=== PATIENT | female | born 1945 | race Caucasian/White ===

== ENCOUNTER → 2016-09-25 | Outpatient (CLI) | payer OTHER, MEDICARE ==
--- NOTE | 2016-09-25 14:24 | MA ---
Screening Digital Mammogram Clinical Indications: Routine screening. Personal history of non-Hodgkin's lymphoma. Technique: Standard cephalocaudal and mediolateral oblique projections are obtained. This examinati on is processed by the [employer] computer aided detection system. Comparison: October 2014, July 2013 and August 2011 Breast density: B; There are scattered fibroglandular densities. Findings: CAD was reviewed. No suspicious findings are identified. Impression: Negative mammogram. BI-RADS 1. Recommendation: Routine screening is recommended in one year. [facility] will send a result letter to the patient. Negative mammography should not preclude additional workup of a clinically suspicious finding. The patient's information is entered into a reminder system with a target due date for her next mammo gram.
== END ==
LOC: FIMAGING 13:31
PROVIDERS: ATTEND Internal Medicine Hematology & Oncology
DX: Z12.31 Encounter for screening mammogram for malignant neoplasm of breast (principal); Z85.72 Personal history of non-Hodgkin lymphomas
CPT/HCPCS: G0202

== ENCOUNTER → 2017-10-26 | Outpatient (CLI) | payer OTHER, MEDICARE | LOC: FIMAGING 12:46 | PROVIDERS: ATTEND Internal Medicine Hematology & Oncology | DX: Z12.31 Encounter for screening mammogram for malignant neoplasm of breast (principal) ==

== ENCOUNTER → 2018-01-18 | Outpatient (CLI) | payer OTHER, MEDICARE | LOC: BMCIMAGING 17:32 | PROVIDERS: ATTEND Family Medicine | DX: M25.461 Effusion, right knee (principal) ==

== ENCOUNTER 2018-02-24 11:21 | Outpatient (CLI) | payer OTHER, MEDICARE ==
[2018-02-24] MEDS ORDERED: PROPOFOL 200 MG/20 ML VIAL ONE (12:00)
[2018-02-24] MEDS ORDERED: PROPOFOL/EMULSION 500 MG/50 ML BOTTLE IV ONE (12:00)
[2018-02-24] MEDS ORDERED: NS 1,000 ML IV ONE (12:36)
[2018-02-24] MEDS ORDERED: GADOBUTROL 10 ML VIAL IVP ONE (12:37)
[2018-02-24] MEDS ORDERED: fentaNYL 100 MCG/2 ML INJ IVP PRN (13:16)
[2018-02-24] MEDS ORDERED: NALOXONE HCL 0.4 MG/ML INJ IVP PRN (13:16)
[2018-02-24] MEDS ORDERED: ONDANSETRON 4 MG/2 ML VIAL IVP PRN (13:16)
--- NOTE | 2018-02-24 13:17 | PDANEPAE ---
ANE History of Present Illness MRI C-Spine, patient requesting GA ANE Past Medical History - Cardiovascular History Hx Hypertension: No Hx Arrhythmias: No Hx Chest Pain: No Hx Coronary Artery / Peripheral Vascular Disease: No Hx CHF / Valvular Disease: No Hx Palpitations: No - Pulmonary History Hx COPD: No Hx Asthma/Reactive Airway Disease: No Hx Recent Upper Respiratory Infection: No Hx Oxygen in Use at Home: No Hx Sleep Apnea: No Sleep Apnea Screening Result - Last Documented: Negative - Neurologic History Hx Cerebrovascular Accident: No Hx Seizures: No Hx Dementia: No - Endocrine History Hx Diabetes: No - Renal History Hx Renal Disorders: No - Liver History Hx Hepatic Disorders: No - Neurological & Psychiatric Hx Hx Neurological and Psychiatric Disorders: Yes Neurological / Psychiatric History Comment: Anxiety - Cancer History Hx Cancer: Yes Cancer History Comment: Non-Hodgkins lymphoma x11 years - Congenital Disorder History Hx Congenital Disorders: No - GI History Hx Gastrointestinal Disorders: Yes Gastrointestinal History Comment: Gastric reflux. Stomach pain - Other Health History Other Health History: thoracic outlet syndrome. osteoporosis. osteoarthritis - Chronic Pain History Chronic Pain: Yes (back, neck) - Surgical History Prior Surgeries: Kyphoplasty-2008. Appendectomy-1999. D&C x 2 ANE Review of Systems Review of Systems: - Exercise capacity METS (RN): 1 METS ANE Patient History - Allergies Allergies/Adverse Reactions: No Known Allergies Allergy (Verified 02/22/18 14:36) - Home Medications Home Medications: ALPRAZolam [Xanax] 1 mg PO TID 11/01/15 [Last Taken 02/23/18] Morphine Sulfate [Morphine Sulfate ER] 15 mg PO BID 11/01/15 [Last Taken ] Lexapro 20 mg PO DAILY 02/22/18 [Last Taken 02/23/18] - Smoking Hx Smoking Status: Former smoker - Family Anes Hx Family Hx Anesthesia Complications: None ANE Labs/Vital Signs - Vital Signs Blood Pressure: 149/76 Heart Rate: 80 Respiratory Rate: 16 O2 Sat (%): 95 Height: 170.18 cm Weight: 65.771 kg ANE Physical Exam - Airway Neck exam: FROM Mallampati Score: Class 2 Mouth exam: normal dental/mouth exam, small mouth opening - Pulmonary Pulmonary: clear to auscultation - Cardiovascular Cardiovascular: regular rate and rhythym - ASA Status ASA Status: III ANE Anesthesia Plan Anesthesia Plan: GA w LMA
--- NOTE | 2018-02-24 14:07 | POSTANESTH ---
Post Anesthetic Evaluation Cardiovascular Status: Normal, Stable Respiratory Status: Normal, Stable Level of Consciousness/Mental Status: Can Participate in Eval, Alert and Oriented Pain Control: Adequate, Prn Tx Ordered Nausea/Vomiting Control: Adequate, Prn Tx Ordered Complications Possibly Related to Anesthesia: None Noted
[2018-02-24 15:33] VITALS: BP 129/69
== END 2018-02-24 15:55 | disposition home or self-care (01) ==
LOC: FSGY 11:21
PROVIDERS: ATTEND Internal Medicine Hematology & Oncology
PROC: BR39Y0Z Magnetic Resonance Imaging (MRI) of Lumbar Spine using Other Contrast, Unenhanced and Enhanced (ICD-10-PCS; principal; 2018-02-24 13:00)
DX: C88.4 Extranodal marginal zone B-cell lymphoma of mucosa-associated lymphoid tissue [MALT-lymphoma] (principal); F41.9 Anxiety disorder, unspecified; M48.061 Spinal stenosis, lumbar region without neurogenic claudication; M51.36 Other intervertebral disc degeneration, lumbar region; M51.26 Other intervertebral disc displacement, lumbar region; M25.78 Osteophyte, vertebrae; S22.080D Wedge compression fracture of T11-T12 vertebra, subsequent encounter for fracture with routine healing; M48.04 Spinal stenosis, thoracic region
CPT/HCPCS: 72158; A9585; J2704; 82565-PO

== ENCOUNTER → 2018-03-11 | Outpatient (CLI) | payer OTHER, MEDICARE | LOC: FIMAGING 12:16 | PROVIDERS: ATTEND Neurological Surgery | DX: M54.16 Radiculopathy, lumbar region (principal); M41.26 Other idiopathic scoliosis, lumbar region; M48.05 Spinal stenosis, thoracolumbar region; M99.13 Subluxation complex (vertebral) of lumbar region ==

== ENCOUNTER → 2018-12-06 | Outpatient (CLI) | payer OTHER, MEDICARE | LOC: FIMAGING 14:24 | PROVIDERS: ATTEND Internal Medicine Hematology & Oncology | DX: Z12.31 Encounter for screening mammogram for malignant neoplasm of breast (principal) ==